=== PATIENT | male | born 1985 | race Caucasian/White ===

== ENCOUNTER 2017-02-11 05:49 | Emergency (ER) | payer OTHER | END 2017-02-11 08:27 | disposition home or self-care (01) | LOC: ER 05:49 | DX: T20.10XA Burn of first degree of head, face, and neck, unspecified site, initial encounter (principal); T22.112A Burn of first degree of left forearm, initial encounter; T22.111A Burn of first degree of right forearm, initial encounter; R06.02 Shortness of breath; R07.89 Other chest pain; W86.8XXA Exposure to other electric current, initial encounter | CPT/HCPCS: 36415; 96374; J2060 ==

== ENCOUNTER 2017-02-13 20:07 | Emergency (ER) | payer OTHER | END 2017-02-13 20:50 | disposition home or self-care (01) | LOC: ER 20:07 | DX: T22.212A Burn of second degree of left forearm, initial encounter (principal); W86.8XXA Exposure to other electric current, initial encounter; Y92.69 Other specified industrial and construction area as the place of occurrence of the external cause; Y99.0 Civilian activity done for income or pay ==